=== PATIENT | female | born 1975 | race Caucasian/White ===

== ENCOUNTER 2024-10-22 14:33 | Emergency (ER) | payer OTHER, SELFPAY ==
--- NOTE | ~2024-10-22 | XR_ITS ---
EXAMINATION: XR foot LT min 3V DATE: 10/22/2024 14:47 INDICATION: Left foot and toe injury TECHNIQUE: Dorsoplantar, two oblique and lateral views of the left foot were obtained. COMPARISON: None. FINDINGS: Alignment is normal. No fracture. Joint spaces are normal. Small plantar calcaneal spur. Soft tissues are unremarkable. IMPRESSION: 1. No acute osseous abnormality. Reviewed, dictated and finalized at location A.
[2024-10-22 14:35] VITALS: BP 153/103; PULSE 100; RESP 20; TEMP 36.8; O2SAT 97
--- NOTE | 2024-10-22 15:05 | ED_ITS ---
HPI - Extremity Injury (Lower) General Chief Complaint: Extremity Injury, Lower Stated Complaint: left foot injury Source: patient Mode of arrival: ambulatory Limitations: no limitations History of Present Illness HPI Narrative: this is a 49-year-old female that presents with left foot and toe injury after she stubbed her toe on her children's toys knee and presents with some pain with mild swelling has good range of motion no numbness or tingling. complaint: foot injury Onset (ago): hour(s) Injury: Left: foot and toes Place: home Severity: mild Relieving factors: NSAID Related Data Home Medications ?Medication ?Instructions ?Recorded ?Confirmed ?Last Taken ?Type No Home Medications 10/22/24 10/22/24 U nknown History Allergies Allergy/AdvReac Type Severity Reaction Status Date / Time Latex, Natural Rubber AdvReac Intermediate Rash Verified 10/22/24 14:51 Review of Systems Review of Systems: All systems reviewed & are unremarkable except as noted in HPI and below PMFSH Past Medical History Medical History Patient denies medical problems Exam Const: General: healthy appearing and no acute distress Nutritional Appearance: well nourished Orientation/consciousness: patient oriented x3 Limitations: no limitations Chest: Chest palpation & inspection: normal inspection of the chest Resp: Effort & Inspection: normal respiratory effort Auscultation: clear to auscultation bilaterally Cardio: Rate: regular rate Rhythm: regular rhythm GI: GI Palp: Yes Soft to palpation Skin: General skin exam: normal color Rashes: no rashes Wounds: no wounds Neuro: General: patient oriented x3, moves all extremities, no meningeal signs and no focal motor deficits Extrem: Other: tenderness mild swelling distal left foot Course Course Emergency Course: patient had x-ray performed shows acute fractures [place]yon wrap applied patient given a postop shoe. Vital Signs Vital signs: Vital Signs Temperature 36.8 C 10/22/24 14:35 Pulse Rate 100 10/22/24 14:35 Respiratory Rate 20 10/22/24 14:35 Blood Pressure 153/103 H 10/22/24 14:35 Pulse Oximetry 97 10/22/24 14:35 Oxygen Delivery Room Air 10/22/24 14:35 Temperature 36.8 C 10/22/24 14:35 Pulse Rate 100 10/22/24 14:35 Respiratory Rate 20 10/22/24 14:35 Blood Pressure 153/103 H 10/22/24 14:35 Pulse Oximetry 97 10/22/24 14:35 Oxygen Delivery Room Air 10/22/24 14:35 Critical Care Time Critical Care Time Critical Care Time: No Discharge Plan Discharge Clinical Impression: Foot sprain Qualifiers: Encounter type: initial encounter Laterality: left Qualified Code(s): S93.602A - Unspecified sprain of left foot, initial encounter Patient Disposition: Home Condition: Stable Instructions: Antibiotic Form, Foot Sprain (ED) Additional Instructions: advised patient to take Tylenol or Motrin as needed and to follow with primary if symptoms persist or worsen. Patient Language: Faroese Prescriptions: No Action No Home Medications Follow-up/Referrals: Bong,AFR[place] Iniguez [Primary Care Provider] Time of Disposition: 15:09
== END 2024-10-22 15:27 | disposition home or self-care (01) ==
PROVIDERS: Emergency Provider Emergency Medicine; PCP Physician Assistant
DX: S93.602A Unspecified sprain of left foot, initial encounter (principal); W22.8XXA Striking against or struck by other objects, initial encounter
CPT/HCPCS: 73630; 99283